=== PATIENT | female | born 1995 | race American Indian/Alaskan Native ===

== ENCOUNTER 2018-12-05 13:14 | Emergency (ER) | payer MEDICAID, OTHER ==
[2018-12-05 13:24] VITALS: BP 120/68
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
[2018-12-05 13:47] LABS: HCG Qualitative,Urine Negative (Negative)
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
== END 2018-12-05 15:29 | disposition left against medical advice (07) ==
LOC: ED 13:14
DX: M54.2 Cervicalgia (principal); Z53.21 Procedure and treatment not carried out due to patient leaving prior to being seen by health care provider
CPT/HCPCS: 72040; 81025